=== PATIENT | male | born 1955 | race Caucasian/White ===

== ENCOUNTER 2018-06-19 17:12 | Emergency (ER) | payer OTHER, SELFPAY ==
[2018-06-19 17:13] VITALS: BP 140/79; PULSE 61; RESP 19; TEMP 37.1; O2SAT 99; BMI 29.7
--- NOTE | 2018-06-19 17:57 | ED.VISSUMM ---
- ER Visit Summary Date of Service: 06/19/18 Chief Complaint: Flank pain, nausea, vomiting History of Present Illness: The patient is a 62 M presents to the emergency department flank pain and vomiting. Patient has a history of kidney stone. He states that 2 weeks ago, he was in the emergency department at [place]. He was diagnosed with urinary tract infection. He has been on Cipro. He states that his symptoms really have not improved. Over the past 24 hours, he has had worsening pain in his right flank. He states it comes in waves. He states it feels like kidney stones that he had before. He has been nauseated. Today, he got acutely nauseated and vomited. He states he got lightheaded and felt like he was going to pass out. He denies any chest pain or shortness of breath. He denies any fevers or chills. He has been compliant with all his medications. He is a [id number] diabetic. Physical Examination: Vital signs reviewed General: Well-nourished, well-developed Head: Normocephalic, atraumatic Eyes: Pupils equal and reactive, extraocular muscles intact Neck, supple, no lymphadenopathy Heart: Regular rate and rhythm Respiratory: No distress, clear bilaterally Abdomen: Soft, nontender, nondistended, no peritoneal signs Back: Nontender Extremities: Nontender, no edema, no cords Skin: Normal color no rash Neuro: Alert and oriented, no focal or lateralizing deficits Test Results: [] Emergency Department Course and Treatment: The bulk of the patient's pain was in his right upper quadrant and was right back. He states is a history of kidney stone and that this felt similar. IV was established. His pain and nausea was treated he felt markedly improved. I did obtain a CT without contrast. There was some very minimal perinephric stranding on the left. The patient has absolutely no pain here. He has a known urinary tract infection. I do feel that this is likely causing that. He has multiple gallstones. I did obtain LFTs and lipase which are unremarkable. Clinically, if the patient symptoms are more likely related to biliary colic. He states that he went to dinner with his son. He had steak and mushrooms with oil. It was an hour and half every 8 this that his pain came on. He has no evidence of acute cholecystitis. He is currently pain-free. He is traveling back to [place] tomorrow. I do for that he is safe for outpatient therapy. He will be treated with analgesics and antiemetics. He was counseled on concerning symptoms and reasons to return. He is discharged home. Treatment Plan: [] Disposition: Discharge Impression: 1. Biliary colic This note was generated with [employer] dictation software. It may contain incorrect words, spelling, and punctuation that were not noted in review of the chart prior to signing ED Disposition - Plan for ED Patient: Chief Complaint: Flank Pain Instructions: ED Abdominal Pain Gallstone Poss Prescriptions: Hydrocodone Bitart/Apap 5-325 [[place] 5MG-325MG] 1 tab PO Q4H PRN PRN 2 Days #10 tab PRN Reason: Pain Ondansetron [Zofran Odt] 4 mg PO Q8H PRN PRN #10 tab PRN Reason: Nausea Referrals: Qiana Cage MD [STAFF PHYSICIAN] -
[2018-06-19] MEDS: Ondansetron 4 MG/2 ML Vial IV (18:07)
[2018-06-19] MEDS: Morphine 4 MG/ML Syringe IV (18:07)
[2018-06-19] MEDS: 0.9% Normal Saline 1,000 ML 250 ML IV (18:08)
[2018-06-19 18:34] LABS: Anion Gap 13 (5-15); BUN 17 mg/dL (7-18); BUN/Creat Ratio 17.2 RATIO (10-20); Calcium,Total 8.8 mg/dL (8.5-10.1); Chloride 107 mmol/L (98-107); Creatinine, Serum 0.99 mg/dL (0.70-1.30); EST Glomerular Filtration Rate 81 mL/min (>60); Est Glom Filt Rate - Afr Amer 98 mL/min (>60); Estimated Creatinine Clearance 70.48 ml/min; Glucose 158 mg/dL (74-106); Potassium 3.2 mmol/L (3.5-5.1); Sodium Level 144 mmol/L (136-145)
[2018-06-19 18:37] LABS: Absolute Lymphocyte Count 1.63 X10^3/ul (0.83-4.51); Absolute Neutrophil Count 9.1 X10^3/uL (2.0-7.7); Basophil# 0.02 X10^3/uL; Basophil% 0.2 % (0-1); Eosinophil# 0.13 X10^3/uL; Eosinophils% 1.1 % (0-5); Hematocrit 40.6 % (40-54); Hemoglobin 13.8 g/dl (13.0-16.5); Lymphocyte # 1.63 X10^3/ul (4.0); Lymphocyte % 13.7 % (19-41); Mean Corpuscular Volume 79.5 fL (80-94); Monocyte# 1.01 X10^3/uL; Monocyte% 8.5 % (0-10); Neutrophil # 9.05 X10^3/uL (2.7-7.7); Neutrophil % 76.2 % (47-70); POSITIVE COUNT NO; POSITIVE DIFFERENTIAL NO; POSITIVE MORPHOLOGY NO; Platelet Count 161 K/mm3 (150-450); RBC Distribution Width CV 13.7 % (11.6-14.6); RBC Distribution Width SD 39.1 fl (35.1-43.9); Red Blood Count 5.11 M/mm3 (4.6-6.2); White Blood Count 11.9 K/mm3 (4.4-11.0)
[2018-06-19 19:04] LABS: Bacteria 0 SEEN /hpf (None Seen); Mucous, Urine 0 SEEN /hpf (<or=2+); Red Blood Cells-Urine 0 SEEN /hpf (0-5)
[2018-06-19 19:09] LABS: Color, Urine Yellow (Yellow); Glucose, Dipstick Normal (Normal); Ketone-Dipstick 5 mg/dl (Negative); Leukocyte Esterase-Dipstick Negative /ul (Negative); Nitrite-Dipstick Negative (Negative); Occult Blood-Urine Negative /ul (Negative); Protein-Dipstick 30 mg/dl (Negative); Urine Bilirubin Dipstick Negative (Negative); Urine Clarity Clear (Clear); Urine Urobilinogen Normal (Normal); Urine pH 6.5 (5.0 - 8.0)
[2018-06-19 19:17] LABS: Squamous Epithelial Cells - UA 0-5 SEEN /hpf (0-5); White Blood Cells 0-5 SEEN /hpf (0-5)
[2018-06-19 19:37] LABS: AST(SGOT) 35 U/L (15-37); Alanine Aminotransfer ALT/SGPT 62 U/L (16-61); Albumin, Serum 3.7 g/dL (3.2-5.0); Alkaline Phosphatase 63 U/L (45-117); Globulin 3.5 g/dL (2.2-4.2); Lipase 97 U/L (73-393); Protein, Total 7.2 g/dL (6.4-8.2)
[2018-06-19 20:32] VITALS: BP 151/98; PULSE 78; RESP 6; O2SAT 96
[2018-06-19 20:34] VITALS: BP 151/98; PULSE 78; RESP 16; O2SAT 96
== END 2018-06-19 20:35 | disposition home or self-care (01) ==
LOC: ED 18:10
PROVIDERS: Emergency Provider Emergency Medicine; Family Provider Family Medicine; PCP Family Medicine
DX: K80.50 Calculus of bile duct without cholangitis or cholecystitis without obstruction (principal); K80.20 Calculus of gallbladder without cholecystitis without obstruction; R30.0 Dysuria; R42 Dizziness and giddiness; E11.9 Type 2 diabetes mellitus without complications; I10 Essential (primary) hypertension; Z79.84 Long term (current) use of oral hypoglycemic drugs; Z79.82 Long term (current) use of aspirin; Z79.899 Other long term (current) drug therapy; Z87.442 Personal history of urinary calculi; Z87.440 Personal history of urinary (tract) infections; Z86.73 Personal history of transient ischemic attack (TIA), and cerebral infarction without residual deficits
CPT/HCPCS: 74176; 80048; 80076; 81001; 83690; 85025; 96361; 96374; 96375; 99284; J7030; A4216; J2405